=== PATIENT | female | born 1970 | race Native Hawaiian/Other Pacific Islander ===

== ENCOUNTER 2022-11-14 17:32 | Emergency (ER) | payer OTHER ==
[~2022-11-14] VITALS: Ht 165.1 cm; Wt 114.3 kg
[2022-11-14 17:32] VITALS: TEMP 97.5
[2022-11-14 18:06] LABS: POTASSIUM 4.9 mmol/L (3.6-5.2)
[2022-11-14 18:22] LABS: PLATELET COUNT 142 K/uL (152-353)
[2022-11-14 20:00] VITALS: BP 147/86
[2022-11-14] MEDS ORDERED: ASPIRIN 81 LOW81 MG PO (21:40)
[2022-11-14] MEDS ORDERED: BIKTARVY 50-2001 TAB PO (21:41)
[2022-11-14] MEDS ORDERED: TRICOR145 M1 PO (21:42)
[2022-11-14] MEDS ORDERED: FISH OIL1000 M1 PO (21:43)
[2022-11-14] MEDS ORDERED: MIRALAX17 GM/SCOO PO (21:43)
[2022-11-14] MEDS ORDERED: INSULIN GL100 UNIT/M SC ×2 (21:44→21:45)
[2022-11-14] MEDS ORDERED: CLARITIN10 M1 PO (21:46)
[2022-11-14] MEDS ORDERED: MELATONIN3 M2 PO (21:48)
[2022-11-14] MEDS ORDERED: MELATONIN10 MG PO (21:48)
[2022-11-14] MEDS ORDERED: NIFE60TA5 PO (21:50)
[2022-11-14] MEDS ORDERED: PANTOPRAZOLE 40MG TA PO (21:51)
[2022-11-14] MEDS ORDERED: CRESTOR20 MG PO (21:52)
[2022-11-14] MEDS ORDERED: SENNA PLUS 50-81 CAP PO (21:53)
[2022-11-14] MEDS ORDERED: QUETIAPINE50 MG PO (21:54)
[2022-11-14] MEDS ORDERED: QUET100T2 PO (21:54)
[2022-11-14] MEDS ORDERED: SERT50TA PO (21:55)
[2022-11-14] MEDS ORDERED: VITAMIN D50000 UNIT PO (21:57)
[2022-11-14] MEDS ORDERED: DOXAZOSIN2 M1 PO (21:57)
[2022-11-14] MEDS ORDERED: LEVE500T5 PO (21:59)
[2022-11-14] MEDS ORDERED: IBU800 MG PO (21:59)
[2022-11-14] MEDS ORDERED: METF100038 PO (22:00)
[2022-11-14] MEDS ORDERED: TRILEPTAL300 MG PO (22:02)
[2022-11-14] MEDS ORDERED: DIVALPROEX250 MG PO (22:03)
[2022-11-14] MEDS ORDERED: GABA100C2 PO (22:04)
[2022-11-14] MEDS ORDERED: INSULIN LI100 UNIT/1 SC (22:06)
[2022-11-14] MEDS ORDERED: MAGOX 400400 M1 PO (22:07)
[2022-11-14] MEDS ORDERED: SOD CHLORIDE1 GM PO (22:08)
[2022-11-14] MEDS ORDERED: SUCR1SUS PO (22:09)
[2022-11-14] MEDS ORDERED: PAIN RELIEF EX500 MG PO (22:11)
[2022-11-14] MEDS ORDERED: GLUCAGON1 MG IM (22:12)
== END 2022-11-14 20:00 | disposition still patient (30) ==
LOC: ED 17:32
PROVIDERS: Emergency Medicine Emergency Medical Services
DX: F32.A Depression, unspecified (principal); Z11.52 Encounter for screening for COVID-19; Z04.6 Encounter for general psychiatric examination, requested by authority
CPT/HCPCS: 80053; 85027; 87635; 93005; 99283; U0003

== ENCOUNTER 2023-03-31 17:21 | Emergency (ER) | payer OTHER ==
[~2023-03-31] VITALS: Ht 172.7 cm; Wt 88.5 kg
[2023-03-31 17:21] VITALS: BP 116/50; TEMP 97.9
[~2023-03-31 17:21] MED LIST: ASPI81TA4 PO; ATOR20TA2 PO; BIKTARVY 50-2001 TAB PO; BLOOMIS59 PO; CLARITIN10 M1 PO; DIVALPROEX250 MG PO; DOCU100C10 PO; DOCUSATE SODIUM1 TA1 PO; DOXA2TAB PO; DOXAZOSIN2 M1 PO; FENOFIBRATE54 MG PO; FISH OIL1000 M1 PO; GABA100C2 PO; GLUCAGON1 MG IM; IBU800 MG PO; INSU300I SC; INSUINJ20 SC; INSULIN GL100 UNIT/M SC; INSULIN LI100 UNIT/1 SC; LEVE500T5 PO; LORA10TA3 PO; MAGN400T4 PO; MAGNSUS68 PO; MAGOX 400400 M1 PO; MELATONIN MAXIMU5 MG PO; MELATONIN10 MG PO; MELATONIN3 M2 PO; METF100038 PO; METF500T PO; MIRALAX 17GM PAK PO; MIRALAX17 GM/SCOO PO; MOTRIN 800 MG PO; NIFE30TA PO; NIFE60TA5 PO; OXCARBAZEPIN300 MG PO; PAIN RELIEF EX500 MG PO; PANTOPRAZOLE 40MG TA PO; QUET100T2 PO; QUET25TA2 PO; QUETIAPINE50 MG PO; ROSUVASTATIN CA40 MG PO; SERT50TA PO; SOD CHLORIDE1 GM PO; SUCR1SUS PO; TRICOR145 M1 PO; TRILEPTAL300 MG PO; TYLENOL 500MG TAB PO; VAZALORE81 MG PO; VITAMIN D50000 UNIT PO
[2023-03-31 18:14] LABS: PLATELET COUNT 250 K/uL (152-353)
[2023-03-31 18:49] LABS: SODIUM 138 mmol/L (136-145)
[2023-03-31] MEDS ORDERED: WEEKLY-D1.25 MG PO (20:05)
[2023-03-31] MEDS ORDERED: IRON325 MG PO (20:07)
[2023-03-31] MEDS ORDERED: FISH OIL1000 M1 PO (20:08)
[2023-03-31] MEDS ORDERED: INSULIN GL100 UNIT/M SC (20:11)
[2023-03-31] MEDS ORDERED: LANTUS SOL100 UNIT/M SC (20:12)
[2023-03-31] MEDS ORDERED: MELATONIN3 M1 PO (20:13)
[2023-03-31] MEDS ORDERED: ASCO500T18 PO (20:18)
[2023-04-07] MEDS ORDERED: TYLENOL 500MG TAB PO (11:46)
[2023-04-07] MEDS ORDERED: ENTERIC COATED325 MG PO (11:46)
[2023-04-07] MEDS ORDERED: ASCO500T18 PO (11:46)
[2023-04-07] MEDS ORDERED: Atorvastatin Calcium PO (11:46)
[2023-04-07] MEDS ORDERED: CEFD300C2 PO (11:47)
[2023-04-07] MEDS ORDERED: CHOL100034 PO (11:47)
[2023-04-07] MEDS ORDERED: DOXA2TAB PO (11:49)
[2023-04-07] MEDS ORDERED: DIVALPROEX250 MG PO (11:49)
[2023-04-07] MEDS ORDERED: GABA100C2 PO (11:50)
[2023-04-07] MEDS ORDERED: FERROUS SULF325 MG PO (11:50)
[2023-04-07] MEDS ORDERED: FENOFIBRATE54 MG PO (11:50)
[2023-04-07] MEDS ORDERED: INSU-1996 SC ×2 (11:51)
[2023-04-07] MEDS ORDERED: MOTRIN 800 MG PO (11:51)
[2023-04-07] MEDS ORDERED: LORA10TA3 PO (11:52)
[2023-04-07] MEDS ORDERED: LEVE500T5 PO (11:52)
[2023-04-07] MEDS ORDERED: MELATONIN MAXIMU5 MG PO (11:53)
[2023-04-07] MEDS ORDERED: MAGN400T4 PO (11:53)
[2023-04-07] MEDS ORDERED: NIFE30TA PO (11:54)
[2023-04-07] MEDS ORDERED: METF500T PO (11:54)
[2023-04-07] MEDS ORDERED: OXCARBAZEPIN300 MG PO (11:54)
[2023-04-07] MEDS ORDERED: PANTOPRAZOLE 40MG TA PO (11:55)
[2023-04-07] MEDS ORDERED: BLOOMIS59 PO (11:55)
[2023-04-07] MEDS ORDERED: QUET25TA2 PO (11:55)
[2023-04-07] MEDS ORDERED: MIRALAX 17GM PAK PO (11:55)
[2023-04-07] MEDS ORDERED: SOD CHLORIDE1 GM PO (11:56)
[2023-04-07] MEDS ORDERED: SUCR1SUS PO (11:56)
== END 2023-03-31 19:33 | disposition still patient (30) ==
LOC: ED 17:21
PROVIDERS: Family Medicine
DX: R45.6 Violent behavior (principal); N39.0 Urinary tract infection, site not specified; Z02.79 Encounter for issue of other medical certificate
CPT/HCPCS: 80053; 81000; 85027; 87077; 87086; 87088; 87186; 87635; 93005; 99283; U0003